=== PATIENT | female | born 1960 | race Caucasian/White ===

== ENCOUNTER 2018-02-15 10:35 | Day surgery (SDC) | payer OTHER ==
[2018-02-15] MEDS ORDERED: PROPOFOL 40 ML (11:01)
== END 2018-02-15 13:24 | disposition home or self-care (01) ==
LOC: GIL 10:35
DX: Z12.11 Encounter for screening for malignant neoplasm of colon (principal); K64.8 Other hemorrhoids; E03.9 Hypothyroidism, unspecified; I10 Essential (primary) hypertension
CPT/HCPCS: 45378